=== PATIENT | male | born 1995 | race African-American/Black ===

== ENCOUNTER 2024-09-24 10:46 | Emergency (ER) | payer MEDICAID ==
[~2024-09-24] VITALS: Ht 182.9 cm; Wt 70.0 kg
[2024-09-24 10:51] VITALS: O2SAT 99
[2024-09-24 13:41] LABS: BASOPHILS % 0.4 % (0.0-2.0); EOSINOPHILS % 0.2 % (0.0-5.0); HEMATOCRIT. 39.3 % (42.0-52.0); LYMPHOCYTES % 41.9 % (20.0-50.0); MEAN CORPUSCULAR HEMOGLOBIN 29.2 pg (28.0-32.0); MEAN CORPUSCULAR HGB CONC 33.2 g/dL (31.0-37.0); MEAN CORPUSCULAR VOLUME 88.1 fL (80.0-94.0); MEAN PLATELET VOLUME 8.2 fl (7.4-10.4); MONOCYTES % 4.9 % (2.0-8.0); NEUTROPHILS % 52.6 % (40.0-76.0); PLATELET 312 x1000/uL (130-400); RED BLOOD CELL COUNT 4.46 mill/uL (4.7-6.1); RED CELL DISTRIBUTION WIDTH 14.3 % (11.6-14.6)
[2024-09-24 13:48] LABS: CHLORIDE 102 mEq/L (98-107); POTASSIUM 3.7 mEq/L (3.5-5.1); SODIUM 136 mEq/L (136-145)
[2024-09-24 13:49] LABS: CALCIUM 8.7 mg/dL (8.7-10.4); CARBON DIOXIDE 29 mEq/L (21-32)
[2024-09-24 13:54] LABS: CREATININE 0.8 mg/dL (0.6-1.3); GLUCOSE 86 mg/dL (70-105); UREA NITROGEN BLOOD 6 mg/dL (9-23)
[2024-09-24 17:59] LABS: PROTHROMBIN TIME 11.1 sec (9.6-11.0)
[2024-09-24 18:00] LABS: ALANINE AMINOTRANSFERASE 13 IU/L (10-49); ASPARTATE AMINOTRANSFERASE 20 IU/L (<34); BILIRUBIN DIRECT 0.1 mg/dL (<=3.0); BILIRUBIN TOTAL 0.3 mg/dL (0.1-1.0); PROTEIN TOTAL 7.7 g/dL (6.0-8.3)
[2024-09-24 18:01] LABS: ETHANOL BLOOD < 10 mg/dL (<10)
[2024-09-24 22:00] VITALS: BP 139/93; PULSE 88; RESP 18; TEMP 36.55848; O2SAT 99
== END 2024-09-24 23:56 | disposition left against medical advice (07) ==
LOC: ER 10:56 → EDBD 10:56 → EDBEDREQ 20:18 → EDBEDREQTM 20:18 → ER 23:56
DX: K92.2 Gastrointestinal hemorrhage, unspecified (principal); A09 Infectious gastroenteritis and colitis, unspecified
CPT/HCPCS: 36415; 74176; 80048; 80076; 80320; 85025; 99284; G0480